=== PATIENT | female | born 1990 | race Caucasian/White ===

== ENCOUNTER 2021-03-04 14:33 | Emergency (ER) | payer OTHER ==
[2021-03-04] MEDS ORDERED: AMOXicillin 250 MG CAP ONE (15:02)
== END 2021-03-04 15:14 | disposition home or self-care (01) ==
LOC: BURERS 14:33
DX: S61.252A Open bite of right middle finger without damage to nail, initial encounter (principal); W55.01XA Bitten by cat, initial encounter
CPT/HCPCS: 99283